=== PATIENT | male | born 1985 | race Caucasian/White ===

== ENCOUNTER 2018-12-27 09:56 | Emergency (ER) | payer BC ==
[2018-12-27] MEDS ORDERED: MAGNESIUM HYDROXIDE/AL HYDROX 30 ML, LIDOCAINE VISC 2% 15ML 15 ML PO ONE ×2 (10:17)
[2018-12-27] MEDS ORDERED: 0.9 % SODIUM CHLORIDE 1,000 ML BAG IV ONE (10:17)
--- NOTE | 2018-12-27 10:25 | Emergency Department Record ---
History of Present Illness - General Chief Complaint: Abdominal Pain Stated Complaint: RT UPPER QUAD ABD PAIN Time Seen by Provider: 12/27/18 10:17 Source: Patient, RN notes reviewed Mode of Arrival: Wheelchair - History of Present Illness Initial Comments: right uper quad pain and vomited times one at 3 am and diarhear every 30 minutes Onset/Timin -: Month(s) Location: RUQ Radiation: None Severity: Moderate Severity scale (1-10): 7 Quality: Cramping, Stabbing Consistency: Constant Improves With: Nothing Worsens With: Eating Associated Symptoms: Denies other symptoms - Related Data Previous Rx's Medication Instructions Recorded Dicyclomine HCl [Bentyl] 10 mg PO Q8H #20 cap 12/27/18 Allergies Allergy/AdvReac Type Severity Reaction Status Date / Time Iodinated Contrast Media Allergy Intermediate VOMITING Verified 12/27/18 10:07 Travel Screening - Travel/Exposure Within Last 30 Days Have you traveled within the last 30 days?: No - Travel/Exposure Within Last Year Have you traveled outside the [place] in the last year?: No - Additonal Travel Details Have you been exposed to anyone with a communicable illness?: No - Travel Symptoms Symptom Screening: None Review of Systems Reviewed: No additional complaints except as noted below Constitutional: Reports: As per HPI. Denies: Chills, Fever, Malaise, Night sweats, Weakness, Weight change Eyes: Reports: As per HPI. Denies: Eye discharge, Eye pain, Photophobia, Vision change ENT: Reports: As per HPI. Denies: Congestion, Dental pain, Ear pain, Epistaxis, Hearing loss, Throat pain Respiratory: Reports: As per HPI. Denies: Cough, Dyspnea, Hemoptysis, Stridor, Wheezes Cardiovascular: Reports: As per HPI. Denies: Arrhythmia, Chest pain, Dyspnea on exertion, Edema, Murmurs, Orthopnea, Palpitations, Paroxysmal nocturnal dyspnea, Rheumatic Fever, Syncope Endocrine: Reports: As per HPI. Denies: Fatigue, Heat or cold intolerance, Polydipsia, Polyuria Gastrointestinal: Reports: As per HPI, Abdominal pain, Diarrhea. Denies: Constipation, Hematemesis, Hematochezia, Melena, Nausea, Vomiting Genitourinary: Reports: As per HPI. Denies: Dysuria, Frequency, Hematuria, Incontinence, Retention, Testicular pain, Testicular mass, Urgency Musculoskeletal: Reports: As per HPI. Denies: Arthralgia, Back pain, Gout, Joint swelling, Myalgia, Neck pain Skin: Reports: As per HPI. Denies: Bruising, Change in color, Change in hair/nails, Lesions, Pruritus, Rash Neurological: Reports: As per HPI. Denies: Abnormal gait, Confusion, Headache, Numbness, Paresthesias, Seizure, Tingling, Tremors, Vertigo, Weakness Psychiatric: Reports: As per HPI. Denies: Anxiety, Auditory hallucinations, Depression, Homicidal thoughts, Suicidal thoughts, Visual hallucinations Hematological/Lymphatic: Reports: As per HPI. Denies: Anemia, Blood Clots, Easy bleeding, Easy bruising, Swollen glands Past Medical History - SOCIAL HISTORY Smoking Status: Never smoker Alcohol Use: Occasional Drug Use: None - RESPIRATORY Hx Respiratory Disorders: No - CARDIOVASCULAR Hx Cardio Disorders: No - NEURO Hx Neuro Disorders: No - GI Hx GI Disorders: No - Hx Genitourinary Disorders: No - ENDOCRINE Hx Endocrine Disorders: No - MUSCULOSKELETAL Hx Musculoskeletal Disorders: No - PSYCH Hx Psych Problems: No - HEMATOLOGY/ONCOLOGY Hx Hematology/Oncology Disorders: No Family Medical History Any Significant Family History?: Yes Hx Cancer: Grandparents Hx Diabetes: Grandparents Hx Heart Disease: Grandparents Hx HTN: Father Physical Exam - General General Appearance: Alert, Oriented x3, Cooperative, No acute distress - Head Head exam: Normal inspection - Eye Eye exam: Normal appearance, PERRL Pupils: Normal accommodation - ENT ENT exam: Normal exam, Mucous membranes moist, Normal external ear exam, Normal orophraynx, TM's normal bilaterally Ear exam: Normal external inspection. negative: External canal tenderness Nasal Exam: Normal inspection. negative: Discharge, Sinus tenderness Mouth exam: Normal external inspection, Tongue normal Teeth exam: Normal inspection. negative: Dental caries Throat exam: Normal inspection. negative: Tonsillar erythema, Tonsillar exudate - Neck Neck exam: Normal inspection, Full ROM. negative: Tenderness - Respiratory Respiratory exam: Normal lung sounds bilaterally. negative: Respiratory distress - Cardiovascular Cardiovascular Exam: Regular rate, Normal rhythm, Normal heart sounds - GI/Abdominal GI/Abdominal exam: Soft, Normal bowel sounds. negative: Tenderness - Rectal Rectal exam: Deferred - exam: Deferred - Extremities Extremities exam: Normal inspection, Full ROM, Normal capillary refill. negative: Tenderness - Back Back exam: Reports: Normal inspection, Full ROM. Denies: Muscle spasm, Rash noted, Tenderness - Neurological Neurological exam: Alert, Normal gait, Oriented X3, Reflexes normal - Psychiatric Psychiatric exam: Normal affect, Normal mood - Skin Skin exam: Dry, Intact, Normal color, Warm Course Vital Signs 12/27/18 10:07 Temperature 98 F Pulse Rate 92 H Respiratory 16 Rate Blood Pressure 147/98 Pulse Ox 99 Medical Decision Making - Data Complexity MDM Data: Labs Ordered and/or Reviewed, X-Ray Ordered and/or Reviewed (US patient has multiple gall stones) - Lab Data Result diagrams: 12/27/18 10:15 12/27/18 10:15 Disposition Clinical Impression: Gall stones Diarrhea Qualifiers: Diarrhea type: infectious Qualified Code(s): A09 - Infectious gastroenteritis and colitis, unspecified Abdominal pain Qualifiers: Abdominal location: right upper quadrant Qualified Code(s): R10.11 - Right upper quadrant pain Disposition: Home, Self-Care Condition: (1) Good Instructions: Acute Diarrhea (ED), Abdominal Pain (ED) Additional Instructions: clear liquids for 24 hours than advance diet to bland food Prescriptions: Dicyclomine HCl [Bentyl] 10 mg PO Q8H #20 cap Forms: Patient Portal Access Time of Disposition: 11:20 Quality - Quality Measures Quality Measures: N/A - Blood Pressure Screening Does Patient Have Any of the Following: No Blood Pressure Classification: Hypertensive Reading Systolic Measurement: 147 Diastolic Measurement: 98 Screening for High Blood Pressure: < Pre-Hypertensive BP, F/U Documented > [G 8950] Pre-Hypertensive Follow-up Interventions: Referral to alternative/primary care provider.
[2018-12-27 10:27] LABS: ABSOLUTE NEUTROPHIL COUNT 8.37; HEMATOCRIT 38.9 % (42.0-52.0); HEMOGLOBIN 12.5 gm/dl (14.0-18.0); MEAN CELL VOLUME 82.2 fl (81-97); MEAN CORPUSCULAR HEMOGLOBIN 26.4 pg (27-33); MEAN CORPUSCULAR HGB CONC 32.1 g/dl (32-36); PLATELET COUNT 426 K/uL (130-400); RED BLOOD COUNT 4.73 M/uL (4.40-5.70); RED CELL DISTRIBUTION WIDTH 13.9 % (11.5-14.5); WHITE BLOOD COUNT W/O DIFF 10.1 K/uL (4.2-12.2)
[2018-12-27 10:31] LABS: URINE APPEARANCE CLEAR; URINE BILIRUBIN NEGATIVE (NEGATIVE); URINE BLOOD NEGATIVE (NEGATIVE); URINE COLOR YELLOW; URINE GLUCOSE (UA) NEGATIVE (NEGATIVE); URINE KETONE NEGATIVE (NEGATIVE); URINE LEUKOCYTE ESTERASE NEGATIVE (NEGATIVE); URINE NITRITE NEGATIVE (NEGATIVE); URINE PROTEIN NEGATIVE (NEGATIVE); URINE UROBILINOGEN 0.2 E.U./dL (0.20 - 1.00)
[2018-12-27 10:37] LABS: PLATELET ESTIMATE NORMAL (NORMAL)
[2018-12-27 10:57] LABS: BLOOD UREA NITROGEN 9 mg/dL (6-20); CREATININE 0.7 mg/dL (0.7-1.2); EST GLOMERULAR FILTRATION RATE > 60 mL/min; LIPASE 14 U/L (13-60); TOTAL PROTEIN 7.3 g/dL (6.6-8.7)
[2018-12-27 10:59] LABS: GLUCOSE,RANDOM 95 mg/dL (74-109)
[2018-12-27 11:02] LABS: ALBUMIN 4.2 g/dL (4.0-5.0); ALKALINE PHOSPHATASE 128 U/L (40-129); ALT/SGPT 15 U/L (<41); AST/SGOT 16 U/L (10.0-50.0); BILIRUBIN,DIRECT < 0.2 mg/dL (0-0.3)
[2018-12-27 13:04] LABS: ROTOVIRUS NOT DETECTED (NOT DETECT)
[2018-12-27 14:04] LABS: MOLECULAR C DIFF TOXIN SCREEN DETECTED (NOT DETECT)
--- NOTE | 2018-12-29 08:51 | ULTRASOUND REPORT ---
EXAM: ULTRASOUND EXAMINATION OF THE ABDOMEN HISTORY: PATIENT HAS RIGHT UPPER UPPER QUADRANT PAIN. TECHNIQUE: Real-time white scale and Duplex Doppler ultrasound examination of the abdomen was performed. Comparison: CT scan of the abdomen and pelvis dated 08/24/13 is provided. FINDINGS: The contour, size and echotexture of the liver is within normal limits. No focal hepatic lesions are identified. There is no sonographic evidence of intrahepatic biliary ductal dilatation. The liver measures 15 cm in the right mid clavicular line. The pancreas is not visualized due to overlying bowel gas. Inferior vena cava is unremarkable. The gallbladder demonstrates multiple mobile gallstones. The gallbladder wall thickness measures 2.2 mm (normal being less than or equal to 3 mm). The patient has a positive sonographic Cabezas's sign. The common bile duct measures 5 mm in diameter (normal being less than or equal to 6 mm). The right kidney measures 12 cm x 6 cm x 4 cm. The contour, size and echotexture of the right kidney is within normal limits. There is no sonographic evidence of hydronephrosis. No renal calculi are noted. IMPRESSION: MULTIPLE MOBILE GALLSTONES ARE IDENTIFIED WITHIN THE GALLBLADDER WITHOUT SIGNIFICANT GALLBLADDER WALL THICKENING. THE PATIENT, HOWEVER, DOES HAVE CABEZAS'S SIGN. THESE FINDINGS MAY INDICATE CHOLECYSTITIS. IF THERE IS FURTHER CLINICAL CONCERN THEN AN NUCLEAR MEDICINE SCINTIGRAPHIC HIDA SCAN CAN BE OBTAINED FOR FURTHER EVALUATION. JOB NUMBER: [id number] MTDD
== END 2018-12-27 11:55 | disposition home or self-care (01) ==
LOC: ER 09:56
DX: A04.72 Enterocolitis due to Clostridium difficile, not specified as recurrent (principal); K80.10 Calculus of gallbladder with chronic cholecystitis without obstruction
CPT/HCPCS: 76705; 80048; 80076; 81003; 83690; 85027; 87425; 87493; 99284; J7030